=== PATIENT | female | born 1995 | race African-American/Black ===

== ENCOUNTER 2017-07-10 10:41 | Emergency (ER) | payer OTHER, MEDICAID ==
[~2017-07-10] VITALS: Ht 170.2 cm; Wt 77.0 kg
[2017-07-10] MEDS ORDERED: SODIUM CHLORIDE 0.9% 1,000 ML IV ONE (12:43)
[2017-07-10] MEDS ORDERED: KETOROLAC 30MG/ML VIAL IV STA (12:43)
[2017-07-10 12:49] LABS: BASOPHILS % 0.4 % (0.0-2.0); EOSINOPHILS % 0.2 % (0.0-5.0); HEMATOCRIT. 38.2 % (36.0-48.0); HEMOGLOBIN. 12.8 g/dL (12.0-16.0); LYMPHOCYTES % 37.2 % (20.0-50.0); MEAN CORPUSCULAR HEMOGLOBIN 28.2 pg (28.0-32.0); MEAN CORPUSCULAR VOLUME 84.3 fL (81.0-99.0); MEAN PLATELET VOLUME 7.7 fl (7.4-10.4); NEUTROPHILS % 46.2 % (40.0-76.0); PLATELET 231 x1000/uL (130-400); RED BLOOD CELL COUNT 4.53 mill/uL (4.2-5.4); RED CELL DISTRIBUTION WIDTH 12.7 % (11.6-14.6)
[2017-07-10 12:58] LABS: CHLORIDE 102 mEq/L (98-107)
[2017-07-10 13:06] LABS: CARBON DIOXIDE 29 mEq/L (21-32)
[2017-07-10 13:07] LABS: HCG SCREEN NEGATIVE
[2017-07-10 13:10] VITALS: BP 113/83
[2017-07-10 13:13] LABS: KETONES URINE TRACE (NEGATIVE); LEUKOCYTE ESTERASE URINE 1+ (NEGATIVE); NITRITE URINE NEGATIVE (NEGATIVE); OCCULT BLOOD URINE NEGATIVE (NEGATIVE); PH URINE 6.5 (4.5-8.0); PROTEIN URINE 1+ (NEGATIVE)
[2017-07-10 13:17] LABS: CLARITY URINE CLEAR (CLEAR); COLOR URINE AMBER (YELLOW)
== END 2017-07-10 17:00 | disposition home or self-care (01) ==
LOC: ER 11:30
DX: J11.1 Influenza due to unidentified influenza virus with other respiratory manifestations (principal); N39.0 Urinary tract infection, site not specified
CPT/HCPCS: 36415; 71045; 80053; 81001; 84703; 85025; 87804; 96374; 99285; J1885; J7030; X7700; Z7610